=== PATIENT | male | born 1975 | race Hispanic/Latino ===

== ENCOUNTER 2019-04-09 18:21 | Emergency (ER) | payer OTHER ==
[~2019-04-09 18:21] MED LIST: ACET-2247 PO; DOXY100T2 PO; FAMO20TA8 PO
[2019-04-09] MEDS ORDERED: ONDANSETRON ODT 4 MG TAB ONE (18:36)
[2019-04-09 19:12] LABS: RAPID GROUP A STREP NEGATIVE (NEGATIVE)
== END 2019-04-09 19:55 | disposition home or self-care (01) ==
LOC: EDH 18:21
DX: B34.9 Viral infection, unspecified (principal)
CPT/HCPCS: 87804; 87880